=== PATIENT | male | born 1940 | race Caucasian/White ===

== ENCOUNTER 2017-10-12 07:34 | Inpatient (IN) | payer BC ==
[~2017-10-12] VITALS: Ht 160 cm; Wt 57.0 kg
[~2017-10-12 07:34] MED LIST: ASPIRIN 81M81 MG/TA2 PO; ATORVASTATIN; AZO-CRANBERRY450 MG PO; DARVOCET N; LIPITOR 10MG10 MG PO; MULTIPLE VITAMI1 CAP PO; NATURE'S BLEND400 IU PO; NITROSTAT0.4 MG/TAB SL; NORCO 325 MG-101 TAB PO; NORCO 325 MG-7.1 TAB PO; OMEGA-3 1000 MG1 CAP PO; OXYCONTIN40 MG PO; PRINZIDE 12.5 M1 TA1 PO; PROTONIX20 MG PO; ZEBETA 5MG5 MG PO; ZESTORETIC 12.51 TAB PO; ZYRTEC 10MG10 MG PO
[2017-10-12 08:31] LABS: COLLECTION METHOD CLEAN CATCH
[2017-10-12 08:34] LABS: MEAN CELL VOLUME 104 fl (80.0-100.0); MEAN CORPUSCULAR HGB CONC 33 g/dl (33.0-37.0); MEAN PLATELET VOLUME 9.3 fl (7.4-10.4); PLATELET COUNT 123 K/mm3 (130-400); RED BLOOD COUNT 3.31 M/mm3 (4.20-5.60); REDCELL DISTRIBUTION WIDTH-CV 11.9 % (11.5-14.5)
[2017-10-12 08:37] LABS: HEMATOCRIT 34.4 % (42.0-52.0); HEMOGLOBIN 11.5 g/dl (13.5-18.0); MEAN CORPUSCULAR HEMOGLOBIN 35 pg (27.0-31.0)
[2017-10-12 08:39] LABS: PH 8 (5-8); SQUAMOUS EPITHELIAL 0-2 /hpf; URINE APPEARANCE Hazy; URINE BACTERIA Rare /hpf; URINE BILIRUBIN Negative (NEGATIVE); URINE BLOOD Negative (NEGATIVE); URINE COLOR Yellow; URINE GLUCOSE Negative (NEGATIVE); URINE KETONE Negative (NEGATIVE); URINE LEUKOCYTE ESTERASE Negative (NEGATIVE); URINE NITRATE Negative (NEGATIVE); URINE PROTEIN(semi-quant) Negative (NEGATIVE); URINE RBC 0-2 /hpf
[2017-10-12 08:47] LABS: ALBUMIN 4.1 gm/dL (3.5-5.0); BILIRUBIN,TOTAL 0.9 mg/dL (0.0-1.0); CALCIUM 9.2 mg/dL (8.4-10.2); CREATININE, serum 0.77 mg/dL (0.66-1.25); POTASSIUM 3.4 mmol/L (3.4-5.0); TOTAL PROTEIN 7.2 gm/dL (6.4-8.2)
[2017-10-12] MEDS ORDERED: PROTONIX 40MG T40 MG PO (08:49)
[2017-10-12 08:52] LABS: INFLUENZA A NEGATIVE; INFLUENZA B NEGATIVE
[2017-10-12 09:00] LABS: TROPONIN-I 0.083 ng/mL (0.000-0.034)
[2017-10-12 09:27] LABS: BAND 68 % (0-10); EOSINOPHIL 1 % (0-4); LYMPHOCYTE 4 % (20.0-51.0); NEUTROPHILS 25 % (42.0-75.2); PLATELET ESTIMATE NORMAL (NORMAL)
[2017-10-12 11:22] VITALS: BP 130/64; PULSE 90; TEMP 99.1
[2017-10-12] MEDS ORDERED: NORCO 325 MG-101 TAB PO (12:52)
[2017-10-12 14:16] VITALS: BP 118/51; PULSE 96; TEMP 98.5
[2017-10-12 18:08] VITALS: BP 133/66; PULSE 75; TEMP 98.9
[2017-10-12 21:14] VITALS: BP 143/57; PULSE 89; TEMP 98.4
[2017-10-13 00:17] VITALS: BP 131/66; PULSE 72; TEMP 97.5
[2017-10-13 04:00] VITALS: BP 137/66; PULSE 80; TEMP 98.5
[2017-10-13 06:51] LABS: MEAN CELL VOLUME 107 fl (80.0-100.0); MEAN CORPUSCULAR HGB CONC 33 g/dl (33.0-37.0); MEAN PLATELET VOLUME 9.9 fl (7.4-10.4); PLATELET COUNT 114 K/mm3 (130-400); RED BLOOD COUNT 2.66 M/mm3 (4.20-5.60); REDCELL DISTRIBUTION WIDTH-CV 12.5 % (11.5-14.5)
[2017-10-13 06:53] LABS: HEMATOCRIT 28.5 % (42.0-52.0); HEMOGLOBIN 9.3 g/dl (13.5-18.0); MEAN CORPUSCULAR HEMOGLOBIN 35 pg (27.0-31.0)
[2017-10-13 07:10] LABS: CREATININE, serum 0.76 mg/dL (0.66-1.25); POTASSIUM 3.1 mmol/L (3.4-5.0)
[2017-10-13 07:33] LABS: BAND 22 % (0-10); EOSINOPHIL 1 % (0-4); LYMPHOCYTE 12 % (20.0-51.0); NEUTROPHILS 65 % (42.0-75.2); POLYCHROMASIA 1+
[2017-10-13 07:34] LABS: PLATELET ESTIMATE DECREASED (NORMAL)
[2017-10-13 08:32] LABS: FERRITIN 171 ng/mL (18-464)
[2017-10-13 08:45] LABS: IRON,SERUM 35 ug/dL (35-150); TOTAL IRON BINDING CAPACITY 242 ug/dL (261-462)
[2017-10-13 09:11] VITALS: BP 143/70; PULSE 64; TEMP 98.9
[2017-10-13] MEDS ORDERED: OMNICEF 300MG300 MG PO (12:32)
[2017-10-13] MEDS ORDERED: DOXYCYCLINE 10100 MG PO (12:35)
== END 2017-10-13 14:15 | disposition home or self-care (01) | DRG 193 ==
LOC: COL.ER 07:34 → SURG 09:49
PROVIDERS: Emergency Medicine; Family Medicine
DX: J18.9 Pneumonia, unspecified organism (principal); J96.01 Acute respiratory failure with hypoxia; I21.A1 Myocardial infarction type 2; G93.41 Metabolic encephalopathy; I10 Essential (primary) hypertension; E78.5 Hyperlipidemia, unspecified; K21.9 Gastro-esophageal reflux disease without esophagitis; D64.9 Anemia, unspecified; E87.6 Hypokalemia; Z85.46 Personal history of malignant neoplasm of prostate
CPT/HCPCS: 99222-AI; 99239; J0696; J2405; J7030; J7050

== ENCOUNTER 2017-11-05 08:48 | Inpatient (IN) | payer BC ==
[~2017-11-05] VITALS: Ht 152.4 cm; Wt 59.4 kg
[~2017-11-05 08:48] MED LIST changes: +DOXYCYCLINE 10100 MG PO; +OMNICEF 300MG300 MG PO; +PROTONIX 40MG T40 MG PO
[2017-11-05 09:34] LABS: HEMATOCRIT 35.8 % (42.0-52.0); HEMOGLOBIN 11.8 g/dl (13.5-18.0); MEAN CELL VOLUME 104 fl (80.0-100.0); MEAN CORPUSCULAR HEMOGLOBIN 34 pg (27.0-31.0); MEAN CORPUSCULAR HGB CONC 33 g/dl (33.0-37.0); MEAN PLATELET VOLUME 9.2 fl (7.4-10.4); PLATELET COUNT 180 K/mm3 (130-400); RED BLOOD COUNT 3.46 M/mm3 (4.20-5.60); REDCELL DISTRIBUTION WIDTH-CV 11.9 % (11.5-14.5)
[2017-11-05 09:52] LABS: ALBUMIN 4.1 gm/dL (3.5-5.0); BAND 22 % (0-10); BILIRUBIN,TOTAL 0.7 mg/dL (0.0-1.0); C-REACTIVE PROTEIN 1.5 mg/dL (0.0-0.9); CALCIUM 9.8 mg/dL (8.4-10.2); CREATININE, serum 0.85 mg/dL (0.66-1.25); LYMPHOCYTE 14 % (20.0-51.0); NEUTROPHILS 60 % (42.0-75.2); PLATELET ESTIMATE NORMAL (NORMAL); POTASSIUM 3.6 mmol/L (3.4-5.0); TOTAL PROTEIN 6.9 gm/dL (6.4-8.2)
[2017-11-05 10:25] LABS: TROPONIN-I < 0.012 ng/mL (0.000-0.034)
[2017-11-05 11:17] LABS: COLLECTION METHOD CLEAN CATCH
[2017-11-05 11:24] LABS: MUCOUS Present /lpf; PH 5 (5-8); SQUAMOUS EPITHELIAL 0-2 /hpf; URINE APPEARANCE Clear; URINE BACTERIA None Seen /hpf; URINE BILIRUBIN Negative (NEGATIVE); URINE BLOOD Negative (NEGATIVE); URINE COLOR Yellow; URINE GLUCOSE Negative (NEGATIVE); URINE KETONE Trace (NEGATIVE); URINE LEUKOCYTE ESTERASE Negative (NEGATIVE); URINE NITRATE Negative (NEGATIVE); URINE PROTEIN(semi-quant) Negative (NEGATIVE); URINE RBC None Seen /hpf; URINE UROBILINOGEN Negative (NEGATIVE)
[2017-11-05 13:23] LABS: GLUCOSE,CSF 59 mg/dL (40-70); TOTAL PROTEIN,CSF 66 mg/dL (15-45)
[2017-11-05 13:25] VITALS: BP 122/56; PULSE 66; TEMP 97.6
[2017-11-05 14:09] LABS: CSF APPEARANCE CLEAR; CSF COLOR COLORLESS; CSF MONONUCLEAR 75 % (70-100); CSF POLYMORPHONUCLEAR 25 % (0-6); CSF RBC 30 /mm3 (0-0)
[2017-11-05 14:10] LABS: CSF APPEARANCE CLEAR; CSF COLOR COLORLESS; CSF MONONUCLEAR 0 % (70-100); CSF POLYMORPHONUCLEAR 0 % (0-6); CSF RBC 10 /mm3 (0-0)
[2017-11-05 17:49] VITALS: BP 147/52; PULSE 53; TEMP 97.9
[2017-11-05 19:58] VITALS: BP 94/64; PULSE 57; TEMP 98.9
[2017-11-06 01:49] VITALS: BP 163/67; PULSE 82; TEMP 98.2
[2017-11-06 04:51] VITALS: BP 147/53; PULSE 57; TEMP 97.7
[2017-11-06 07:05] LABS: BASO # 0.1 (0.0-0.2); BASO % 0.6 % (0.0-2.0); EOS # 0.1 (0.0-0.7); EOS % 1.4 % (0-4.0); GRAN # 6.7 (1.4-6.5); GRAN % 77.9 % (42.2-75.2); LYMPH # 1.4 (1.2-3.4); MEAN CELL VOLUME 104 fl (80.0-100.0); MEAN CORPUSCULAR HGB CONC 33 g/dl (33.0-37.0); MEAN PLATELET VOLUME 9.7 fl (7.4-10.4); MONO # 0.3 (0.1-0.6); MONO % 3.6 % (1.7-9.3); PLATELET COUNT 177 K/mm3 (130-400); RED BLOOD COUNT 3.02 M/mm3 (4.20-5.60); REDCELL DISTRIBUTION WIDTH-CV 11.8 % (11.5-14.5)
[2017-11-06 07:06] LABS: HEMATOCRIT 31.4 % (42.0-52.0); HEMOGLOBIN 10.2 g/dl (13.5-18.0); MEAN CORPUSCULAR HEMOGLOBIN 34 pg (27.0-31.0)
[2017-11-06 07:17] LABS: CALCIUM 8.8 mg/dL (8.4-10.2); CREATININE, serum 0.76 mg/dL (0.66-1.25); POTASSIUM 3.2 mmol/L (3.4-5.0)
[2017-11-06 09:52] VITALS: BP 147/65; PULSE 63; TEMP 98.2
[2017-11-06 13:05] VITALS: BP 152/65; PULSE 59; TEMP 98.2
[2017-11-06 16:29] VITALS: BP 155/71; PULSE 64; TEMP 98.9
[2017-11-06 20:33] VITALS: BP 172/67; PULSE 65; TEMP 97.3
[2017-11-07] VITALS (7 sets, daily range): BP systolic 107–189; BP diastolic 46–83; PULSE 46–85; TEMP 97.6–98.7
[2017-11-07 06:53] LABS: BASO % 0.6 % (0.0-2.0); EOS # 0.2 (0.0-0.7); EOS % 3.9 % (0-4.0); GRAN # 3.3 (1.4-6.5); GRAN % 64.4 % (42.2-75.2); LYMPH # 1.3 (1.2-3.4); LYMPH % 24.5 % (20.0-51.0); MEAN CELL VOLUME 104 fl (80.0-100.0); MEAN CORPUSCULAR HGB CONC 33 g/dl (33.0-37.0); MEAN PLATELET VOLUME 9.7 fl (7.4-10.4); MONO # 0.3 (0.1-0.6); MONO % 6.2 % (1.7-9.3); PLATELET COUNT 135 K/mm3 (130-400); RED BLOOD COUNT 2.65 M/mm3 (4.20-5.60); REDCELL DISTRIBUTION WIDTH-CV 11.8 % (11.5-14.5)
[2017-11-07 06:56] LABS: HEMATOCRIT 27.5 % (42.0-52.0); HEMOGLOBIN 9.1 g/dl (13.5-18.0); MEAN CORPUSCULAR HEMOGLOBIN 34 pg (27.0-31.0)
[2017-11-07 07:03] LABS: INR 1.1 (0.8-3.0)
[2017-11-07 07:21] LABS: CALCIUM 8.4 mg/dL (8.4-10.2); CREATININE, serum 0.8 mg/dL (0.66-1.25); POTASSIUM 3.3 mmol/L (3.4-5.0)
[2017-11-08 00:50] VITALS: BP 140/50; PULSE 56; TEMP 98.7
[2017-11-08 06:40] LABS: BASO % 0.7 % (0.0-2.0); EOS # 0.2 (0.0-0.7); EOS % 3.7 % (0-4.0); GRAN % 67.1 % (42.2-75.2); LYMPH # 1.3 (1.2-3.4); LYMPH % 22.4 % (20.0-51.0); MEAN CELL VOLUME 102 fl (80.0-100.0); MEAN CORPUSCULAR HGB CONC 33 g/dl (33.0-37.0); MEAN PLATELET VOLUME 9.9 fl (7.4-10.4); MONO # 0.4 (0.1-0.6); MONO % 5.9 % (1.7-9.3); PLATELET COUNT 141 K/mm3 (130-400); RED BLOOD COUNT 2.64 M/mm3 (4.20-5.60); REDCELL DISTRIBUTION WIDTH-CV 11.5 % (11.5-14.5)
[2017-11-08 06:52] LABS: CALCIUM 8.5 mg/dL (8.4-10.2); CREATININE, serum 0.72 mg/dL (0.66-1.25); POTASSIUM 3.3 mmol/L (3.4-5.0)
[2017-11-08 06:55] LABS: HEMATOCRIT 26.8 % (42.0-52.0); HEMOGLOBIN 8.9 g/dl (13.5-18.0); MEAN CORPUSCULAR HEMOGLOBIN 34 pg (27.0-31.0)
[2017-11-08 09:22] VITALS: BP 170/83; PULSE 52; TEMP 98.3
== END 2017-11-08 11:58 | disposition home or self-care (01) | DRG 947 ==
LOC: COL.ER 08:48 → MEDICAL 11:54
PROVIDERS: Emergency Medicine; Family Medicine; Physician Assistant
PROC: 009U3ZX Drainage of Spinal Canal, Percutaneous Approach, Diagnostic (ICD-10-PCS; principal; 2017-11-05)
DX: R41.82 Altered mental status, unspecified (principal); I21.A1 Myocardial infarction type 2; R65.10 Systemic inflammatory response syndrome (SIRS) of non-infectious origin without acute organ dysfunction; R50.9 Fever, unspecified; I25.82 Chronic total occlusion of coronary artery; I08.3 Combined rheumatic disorders of mitral, aortic and tricuspid valves; E87.6 Hypokalemia; I25.10 Atherosclerotic heart disease of native coronary artery without angina pectoris; I10 Essential (primary) hypertension; Z85.46 Personal history of malignant neoplasm of prostate; D64.9 Anemia, unspecified; G89.29 Other chronic pain
CPT/HCPCS: 99222-AI; 99232-AI; 99239; J0696; J1650; J2250; J3010; J3370; J3420; J3480; J7030; J7050; J7060

== ENCOUNTER 2018-01-18 08:27 | Inpatient (IN) | payer BC ==
[~2018-01-18] VITALS: Ht 157.5 cm; Wt 181.9 kg
[2018-01-18] VITALS (740 sets, daily range): BP systolic 105–123; BP diastolic 55–63; PULSE 50–73; TEMP 97.8–99.4; O2SAT 40–100
[2018-01-18 08:48] LABS: BASO % 0.3 % (0.0-2.0); EOS # 0.3 (0.0-0.7); EOS % 2.8 % (0-4.0); GRAN # 9.9 (1.4-6.5); GRAN % 83.6 % (42.2-75.2); LYMPH % 8.3 % (20.0-51.0); MEAN CELL VOLUME 93 fl (80.0-100.0); MEAN CORPUSCULAR HGB CONC 34 g/dl (33.0-37.0); MEAN PLATELET VOLUME 9.3 fl (7.4-10.4); MONO # 0.6 (0.1-0.6); MONO % 4.7 % (1.7-9.3); PLATELET COUNT 183 K/mm3 (130-400); RED BLOOD COUNT 3.39 M/mm3 (4.20-5.60)
[2018-01-18 08:50] LABS: HEMATOCRIT 31.6 % (42.0-52.0); HEMOGLOBIN 10.7 g/dl (13.5-18.0); MEAN CORPUSCULAR HEMOGLOBIN 32 pg (27.0-31.0)
[2018-01-18 09:00] LABS: ALBUMIN 3.8 gm/dL (3.5-5.0); BILIRUBIN,TOTAL 0.6 mg/dL (0.0-1.0); C-REACTIVE PROTEIN 2.8 mg/dL (0.0-0.9); CALCIUM 9.3 mg/dL (8.4-10.2); CREATININE, serum 1.13 mg/dL (0.66-1.25); POTASSIUM 4.1 mmol/L (3.4-5.0); TOTAL PROTEIN 7.1 gm/dL (6.4-8.2)
[2018-01-18 09:02] LABS: COLLECTION METHOD CLEAN CATCH
[2018-01-18 09:16] LABS: PH 7 (5-8); SQUAMOUS EPITHELIAL 0-2 /hpf; URINE APPEARANCE Clear; URINE BACTERIA None Seen /hpf; URINE BILIRUBIN Negative (NEGATIVE); URINE BLOOD 2+ (NEGATIVE); URINE COLOR Yellow; URINE GLUCOSE Negative (NEGATIVE); URINE KETONE Negative (NEGATIVE); URINE LEUKOCYTE ESTERASE Negative (NEGATIVE); URINE NITRATE Negative (NEGATIVE); URINE PROTEIN(semi-quant) Negative (NEGATIVE); URINE RBC 20-50 /hpf; URINE UROBILINOGEN Negative (NEGATIVE)
[2018-01-19] VITALS (753 sets, daily range): BP systolic 98–174; BP diastolic 58–82; PULSE 54–77; TEMP 97.7–98.9; O2SAT 76–100
[2018-01-19 05:16] LABS: BASO % 0.5 % (0.0-2.0); EOS # 0.3 (0.0-0.7); GRAN # 4.9 (1.4-6.5); LYMPH # 1.1 (1.2-3.4); MEAN CELL VOLUME 95 fl (80.0-100.0); MEAN CORPUSCULAR HGB CONC 33 g/dl (33.0-37.0); MEAN PLATELET VOLUME 9.2 fl (7.4-10.4); MONO # 0.3 (0.1-0.6); MONO % 4.3 % (1.7-9.3); PLATELET COUNT 156 K/mm3 (130-400); RED BLOOD COUNT 2.84 M/mm3 (4.20-5.60); REDCELL DISTRIBUTION WIDTH-CV 11.9 % (11.5-14.5)
[2018-01-19 05:17] LABS: HEMATOCRIT 26.9 % (42.0-52.0); HEMOGLOBIN 8.9 g/dl (13.5-18.0); MEAN CORPUSCULAR HEMOGLOBIN 31 pg (27.0-31.0)
[2018-01-19 05:31] LABS: ALBUMIN 2.8 gm/dL (3.5-5.0); BILIRUBIN,TOTAL 0.6 mg/dL (0.0-1.0); CALCIUM 8.4 mg/dL (8.4-10.2); CREATININE, serum 0.87 mg/dL (0.66-1.25); POTASSIUM 3.7 mmol/L (3.4-5.0); TOTAL PROTEIN 5.6 gm/dL (6.4-8.2)
[2018-01-20 03:55] VITALS: BP 144/64; PULSE 53; TEMP 97.9
[2018-01-20 06:18] LABS: BASO % 0.6 % (0.0-2.0); EOS # 0.4 (0.0-0.7); EOS % 7.2 % (0-4.0); GRAN # 3.1 (1.4-6.5); GRAN % 59.9 % (42.2-75.2); LYMPH # 1.3 (1.2-3.4); LYMPH % 24.2 % (20.0-51.0); MEAN CELL VOLUME 94 fl (80.0-100.0); MEAN CORPUSCULAR HGB CONC 33 g/dl (33.0-37.0); MEAN PLATELET VOLUME 9.3 fl (7.4-10.4); MONO # 0.4 (0.1-0.6); MONO % 7.9 % (1.7-9.3); PLATELET COUNT 146 K/mm3 (130-400); RED BLOOD COUNT 2.66 M/mm3 (4.20-5.60); REDCELL DISTRIBUTION WIDTH-CV 12.1 % (11.5-14.5)
[2018-01-20 06:24] LABS: HEMATOCRIT 25.1 % (42.0-52.0); HEMOGLOBIN 8.3 g/dl (13.5-18.0); MEAN CORPUSCULAR HEMOGLOBIN 31 pg (27.0-31.0)
[2018-01-20 06:29] LABS: CALCIUM 8.3 mg/dL (8.4-10.2); CREATININE, serum 0.91 mg/dL (0.66-1.25); POTASSIUM 3.5 mmol/L (3.4-5.0)
[2018-01-20 08:37] VITALS: BP 145/56; PULSE 56; TEMP 98.4
[2018-01-20 12:34] VITALS: BP 139/57; PULSE 49; TEMP 97.9
[2018-01-20 16:49] VITALS: BP 152/71; PULSE 59; TEMP 98.8
[2018-01-20 20:20] VITALS: BP 188/67; PULSE 59; TEMP 97.7
[2018-01-20 23:58] VITALS: BP 131/71; PULSE 54; TEMP 98.5
[2018-01-21 04:37] VITALS: BP 133/66; PULSE 69; TEMP 97.8
[2018-01-21 07:56] VITALS: BP 170/70; PULSE 56; TEMP 98.6
[2018-01-21] MEDS ORDERED: AMOXICILLIN 8751 TAB PO (08:59)
== END 2018-01-21 10:45 | disposition home or self-care (01) | DRG 179 ==
LOC: COL.ER 08:27 → ICU 10:36 → MEDICAL 01-19 19:29
PROVIDERS: Emergency Medicine; Internal Medicine
DX: J69.0 Pneumonitis due to inhalation of food and vomit (principal); R31.29 Other microscopic hematuria; Z85.46 Personal history of malignant neoplasm of prostate; K21.9 Gastro-esophageal reflux disease without esophagitis; E78.5 Hyperlipidemia, unspecified; D53.9 Nutritional anemia, unspecified; I35.0 Nonrheumatic aortic (valve) stenosis
CPT/HCPCS: 99231-AI; 99232-AI; 99239; G0378; J1650; J2543; J7030

== ENCOUNTER 2018-06-02 03:43 | Inpatient (IN) | payer BC, MEDICARE ==
[2018-06-02] VITALS (566 sets, daily range): BP systolic 67–134; BP diastolic 46–68; PULSE 58–71; TEMP 97–97.9; O2SAT 63–100
[~2018-06-02] VITALS: Ht 157.5 cm; Wt 63.6 kg
[~2018-06-02 03:43] MED LIST changes: +AMOXICILLIN 8751 TAB PO
[2018-06-02 03:56] LABS: ARTERIAL BLD GAS TCO2 CT 23.5; ARTERIAL BLOOD GAS BASE EXCESS -0.7 (-2-2); ARTERIAL BLOOD GAS HCO3 22.5 meq/L (22-26); ARTERIAL BLOOD GAS PCO2 32.2 mmHg (35-45); ARTERIAL BLOOD GAS PO2 59.1 mmHg (80-100); ARTERIAL BLOOD GAS pH 7.46 (7.35-7.45)
[2018-06-02 04:28] LABS: BASO % 0.6 % (0.0-2.0); EOS # 0.4 (0.0-0.7); EOS % 5.6 % (0-4.0); GRAN % 74.7 % (42.2-75.2); LYMPH # 0.7 (1.2-3.4); LYMPH % 10.1 % (20.0-51.0); MEAN CELL VOLUME 92 fl (80.0-100.0); MEAN CORPUSCULAR HEMOGLOBIN 30 pg (27.0-31.0); MEAN CORPUSCULAR HGB CONC 33 g/dl (33.0-37.0); MEAN PLATELET VOLUME 9.4 fl (7.4-10.4); MONO # 0.6 (0.1-0.6); MONO % 8.1 % (1.7-9.3); PLATELET COUNT 112 K/mm3 (130-400); RED BLOOD COUNT 3.32 M/mm3 (4.20-5.60); REDCELL DISTRIBUTION WIDTH-CV 13.6 % (11.5-14.5)
[2018-06-02 04:34] LABS: ALANINE AMINOTRANSFERASE 24 U/L (21-72); ALBUMIN 3.6 gm/dL (3.5-5.0); ALKALINE PHOSPHATASE 115 U/L (50-136); ANION GAP 10 mmol/L (7-16); AST,SGOT 28 U/L (15-37); BILIRUBIN,TOTAL 0.4 mg/dL (0.0-1.0); BLOOD UREA NITROGEN 28 mg/dL (9-20); CALCIUM 8.8 mg/dL (8.4-10.2); CARBON DIOXIDE 25 mmol/L (22-30); CHLORIDE 102 mmol/L (98-107); CREATININE, serum 1.05 mg/dL (0.66-1.25); GLUCOSE 111 mg/dL (74-106); INR 1.1 (0.8-3.0); MAGNESIUM 1.5 mg/dL (1.6-2.3); PHOSPHOROUS 2.3 mg/dL (2.5-4.5); POTASSIUM 4.5 mmol/L (3.4-5.0); PROTHROMBIN TIME 12.1 SECONDS (9.7-12.8); SODIUM 137 mmol/L (137-145); TOTAL PROTEIN 6.7 gm/dL (6.4-8.2)
[2018-06-02 04:35] LABS: HEMATOCRIT 30.4 % (42.0-52.0)
[2018-06-02 04:37] LABS: PARTIAL THROMBOPLASTIN TIME 29.2 SECONDS (26.0-37.0)
[2018-06-02 04:47] LABS: COLLECTION METHOD CATHETER
[2018-06-02 04:48] LABS: TROPONIN-I < 0.012 ng/mL (0.000-0.034)
[2018-06-02 04:52] LABS: PH 5 (5-8); SQUAMOUS EPITHELIAL 0-2 /hpf; URINE APPEARANCE Clear; URINE BACTERIA None Seen /hpf; URINE BILIRUBIN Negative (NEGATIVE); URINE BLOOD Negative (NEGATIVE); URINE COLOR Yellow; URINE GLUCOSE Negative (NEGATIVE); URINE KETONE Negative (NEGATIVE); URINE LEUKOCYTE ESTERASE Negative (NEGATIVE); URINE NITRATE Negative (NEGATIVE); URINE PROTEIN(semi-quant) Negative (NEGATIVE); URINE RBC 0-2 /hpf; URINE UROBILINOGEN Negative (NEGATIVE)
[2018-06-02] MEDS ORDERED: DULCOLAX STOOL100 MG PO (05:09)
[2018-06-02] MEDS ORDERED: ASPIRIN 81M81 MG/TA2 PO (05:10)
[2018-06-03] VITALS (561 sets, daily range): BP systolic 105–165; BP diastolic 50–78; PULSE 56–80; TEMP 98.3–98.9; O2SAT 66–100
[2018-06-03 06:36] LABS: MEAN CELL VOLUME 95 fl (80.0-100.0); MEAN CORPUSCULAR HGB CONC 32 g/dl (33.0-37.0); MEAN PLATELET VOLUME 9.7 fl (7.4-10.4); PLATELET COUNT 158 K/mm3 (130-400); RED BLOOD COUNT 2.83 M/mm3 (4.20-5.60); REDCELL DISTRIBUTION WIDTH-CV 13.4 % (11.5-14.5)
[2018-06-03 06:41] LABS: HEMATOCRIT 26.9 % (42.0-52.0); HEMOGLOBIN 8.6 g/dl (13.5-18.0); MEAN CORPUSCULAR HEMOGLOBIN 30 pg (27.0-31.0)
[2018-06-03 06:48] LABS: ALBUMIN 2.9 gm/dL (3.5-5.0); BILIRUBIN,TOTAL 0.3 mg/dL (0.0-1.0); CALCIUM 8.1 mg/dL (8.4-10.2); CREATININE, serum 0.85 mg/dL (0.66-1.25); PHOSPHOROUS 3.2 mg/dL (2.5-4.5); POTASSIUM 3.6 mmol/L (3.4-5.0); TOTAL PROTEIN 5.5 gm/dL (6.4-8.2)
[2018-06-03 07:24] LABS: BAND 29 % (0-10); EOSINOPHIL 1 % (0-4); LYMPHOCYTE 13 % (20.0-51.0); NEUTROPHILS 54 % (42.0-75.2); PLATELET ESTIMATE NORMAL (NORMAL)
[2018-06-03] MEDS ORDERED: NORCO 325 MG-101 TAB PO (13:19)
[2018-06-04] VITALS (7 sets, daily range): BP systolic 116–171; BP diastolic 50–78; PULSE 56–80; TEMP 98–98.5
[2018-06-04 06:34] LABS: BASO % 0.5 % (0.0-2.0); EOS # 0.2 (0.0-0.7); EOS % 2.7 % (0-4.0); GRAN # 5.6 (1.4-6.5); GRAN % 74.5 % (42.2-75.2); LYMPH # 1.2 (1.2-3.4); LYMPH % 16.3 % (20.0-51.0); MEAN CELL VOLUME 94 fl (80.0-100.0); MEAN CORPUSCULAR HGB CONC 32 g/dl (33.0-37.0); MEAN PLATELET VOLUME 9.7 fl (7.4-10.4); MONO # 0.4 (0.1-0.6); MONO % 5.6 % (1.7-9.3); PLATELET COUNT 165 K/mm3 (130-400); RED BLOOD COUNT 2.67 M/mm3 (4.20-5.60); REDCELL DISTRIBUTION WIDTH-CV 13.5 % (11.5-14.5)
[2018-06-04 06:40] LABS: HEMATOCRIT 25.2 % (42.0-52.0); HEMOGLOBIN 8.1 g/dl (13.5-18.0); MEAN CORPUSCULAR HEMOGLOBIN 30 pg (27.0-31.0)
[2018-06-04 06:49] LABS: ALBUMIN 2.9 gm/dL (3.5-5.0); BILIRUBIN,TOTAL 0.4 mg/dL (0.0-1.0); CALCIUM 8.3 mg/dL (8.4-10.2); CREATININE, serum 0.87 mg/dL (0.66-1.25); POTASSIUM 3.5 mmol/L (3.4-5.0); TOTAL PROTEIN 5.5 gm/dL (6.4-8.2)
[2018-06-05 00:25] VITALS: BP 117/57; PULSE 72; TEMP 98.5
[2018-06-05 05:45] VITALS: BP 98/52; PULSE 85; TEMP 98.2
[2018-06-05 06:22] LABS: BASO % 0.5 % (0.0-2.0); EOS # 0.4 (0.0-0.7); EOS % 5.6 % (0-4.0); GRAN # 4.6 (1.4-6.5); GRAN % 69.2 % (42.2-75.2); LYMPH # 1.2 (1.2-3.4); LYMPH % 17.9 % (20.0-51.0); MEAN CELL VOLUME 93 fl (80.0-100.0); MEAN CORPUSCULAR HGB CONC 33 g/dl (33.0-37.0); MEAN PLATELET VOLUME 9.8 fl (7.4-10.4); MONO # 0.4 (0.1-0.6); MONO % 6.5 % (1.7-9.3); PLATELET COUNT 166 K/mm3 (130-400); RED BLOOD COUNT 2.72 M/mm3 (4.20-5.60); REDCELL DISTRIBUTION WIDTH-CV 13.5 % (11.5-14.5)
[2018-06-05 06:26] LABS: HEMATOCRIT 25.2 % (42.0-52.0); HEMOGLOBIN 8.2 g/dl (13.5-18.0); MEAN CORPUSCULAR HEMOGLOBIN 30 pg (27.0-31.0)
[2018-06-05 06:57] LABS: ALBUMIN 3.1 gm/dL (3.5-5.0); BILIRUBIN,TOTAL 0.6 mg/dL (0.0-1.0); CALCIUM 8.8 mg/dL (8.4-10.2); CREATININE, serum 0.81 mg/dL (0.66-1.25); POTASSIUM 3.1 mmol/L (3.4-5.0); TOTAL PROTEIN 5.8 gm/dL (6.4-8.2)
[2018-06-05 07:54] VITALS: BP 154/68; PULSE 57; TEMP 98.5
[2018-06-05] MEDS ORDERED: PRINZIDE 12.5 M1 TA1 PO (09:23)
[2018-06-05] MEDS ORDERED: K-DUR20 MEQ PO (09:23)
[2018-06-05] MEDS ORDERED: AMOXICILLIN 8751 TAB PO (09:26)
== END 2018-06-05 11:42 | disposition home or self-care (01) | DRG 871 ==
LOC: COL.ER 03:43 → ICU 05:27 → COL.ER 05:27 → MEDICAL 05:27 → SURG 05:27 → ICU 07:50 → MEDICAL 06-03 17:54 → ICU 06-03 17:54 → MEDICAL 06-03 18:00
PROVIDERS: Emergency Medicine; Physician Assistant
DX: A41.9 Sepsis, unspecified organism (principal); J96.01 Acute respiratory failure with hypoxia; J69.0 Pneumonitis due to inhalation of food and vomit; R65.20 Severe sepsis without septic shock; Z85.46 Personal history of malignant neoplasm of prostate; I10 Essential (primary) hypertension; E83.42 Hypomagnesemia; E78.5 Hyperlipidemia, unspecified; I25.10 Atherosclerotic heart disease of native coronary artery without angina pectoris; I35.0 Nonrheumatic aortic (valve) stenosis
CPT/HCPCS: 99223-AI; 99233-AI; 99239; J0360; J0456; J1650; J2543; J3475; J7030; J7050; Q9967

== ENCOUNTER 2020-04-15 00:12 | Inpatient (IN) | payer MEDICARE, OTHER ==
[~2020-04-15] VITALS: Ht 157.5 cm; Wt 64.2 kg
[~2020-04-15 00:12] MED LIST changes: +DULCOLAX STOOL100 MG PO; +K-DUR20 MEQ PO; +OXYCONTIN 20MG20 MG PO; -OXYCONTIN40 MG PO
[2020-04-15 01:19] LABS: BASO # 0.1 (0.0-0.2); BASO % 0.5 % (0.0-2.0); EOS # 0.1 (0.0-0.7); EOS % 0.7 % (0-4.0); GRAN # 11.7 (1.4-6.5); GRAN % 82.2 % (42.2-75.2); HEMATOCRIT 39.9 % (42.0-52.0); HEMOGLOBIN 13.1 g/dl (13.5-18.0); LYMPH # 1.9 (1.2-3.4); LYMPH % 13.2 % (20.0-51.0); MEAN CELL VOLUME 96 fl (80.0-100.0); MEAN CORPUSCULAR HEMOGLOBIN 31 pg (27.0-31.0); MEAN CORPUSCULAR HGB CONC 33 g/dl (33.0-37.0); MEAN PLATELET VOLUME 10.4 fl (7.4-10.4); MONO # 0.4 (0.1-0.6); PLATELET COUNT 213 K/mm3 (130-400); RED BLOOD COUNT 4.18 M/mm3 (4.20-5.60); REDCELL DISTRIBUTION WIDTH-CV 15.7 % (11.5-14.5)
[2020-04-15 01:24] LABS: PROTHROMBIN TIME 10.6 SECONDS (9.7-12.8)
[2020-04-15 02:36] LABS: ALBUMIN 3.8 gm/dL (3.5-5.0); BILIRUBIN,TOTAL 0.7 mg/dL (0.0-1.0); CALCIUM 8.6 mg/dL (8.4-10.2); CREATININE, serum 0.9 (0.66-1.25); POTASSIUM 3.9 mmol/L (3.4-5.0); TOTAL PROTEIN 6.5 gm/dL (6.4-8.2)
--- NOTE | 2020-04-15 04:15 | NUR ---
PT ADMITTED TO ROOM 342 VIA BED. INT NEEDLE TO RT F/A INFUSING IVF'S CHANGED TO NS 125CC/HR. PAIN TO EPIGASTRIC AREA LEVEL 9/10. SEE MAR FOR DILAUDID AND PHENERGAN GIVEN. PT VOIDED PER URINAL WEAR PAD FOR INCONTINENCE. BANDAIDS TO LEGS. PTS THOUGHT PROCESS ALITTLE DELAYED. ORIENTED TO ROOM. CALL LIGHT IN REACH. BED ALARAM SET.
[2020-04-15 04:25] VITALS: BP 155/87; PULSE 18; TEMP 97.9
--- NOTE | 2020-04-15 05:14 | NUR ---
PT RESTING NOW. NO RESP DISTRESS. NO EVIDENCE OF PAIN.
--- NOTE | 2020-04-15 05:32 | NUR ---
PT RELATES GETTING PAIN RELIEF NOW.
--- NOTE | 2020-04-15 06:27 | NUR ---
PT SLEEPING. NO RESP DISTRESS. NO EVIDENCE OF PAIN.
--- NOTE | 2020-04-15 06:55 | NUR ---
Lying in bed on left side with eyes closed. Opens eyes when name called out. Having some discomfort in abd but when asked to rate the pain the patient does not rate the pain. Patient denies needs at this time.
[2020-04-15 07:58] VITALS: BP 154/68; PULSE 63; TEMP 99.4
--- NOTE | 2020-04-15 09:08 | NUR ---
Patient repositioned in bed. Patient closes eyes. When asked if having pain he says some, does not rate the pain or explain where pain is, then patient recloses eyes. Asked if patient needs anything further. Patient does not give answer.
--- NOTE | 2020-04-15 10:22 | NUR ---
Lying in bed on right side with eyes closed. Respirations even and unlabored. No signs or symptoms of discomfort noted.
[2020-04-15] MEDS ORDERED: ARICEPT 5MG PO (10:56)
[2020-04-15] MEDS ORDERED: ZYLOPRIM 300MG300 MG PO (10:57)
[2020-04-15 11:21] LABS: MEAN CELL VOLUME 97 fl (80.0-100.0); MEAN CORPUSCULAR HGB CONC 33 g/dl (33.0-37.0); MEAN PLATELET VOLUME 9.8 fl (7.4-10.4); PLATELET COUNT 186 K/mm3 (130-400); RED BLOOD COUNT 3.32 M/mm3 (4.20-5.60); REDCELL DISTRIBUTION WIDTH-CV 15.8 % (11.5-14.5)
[2020-04-15 11:24] LABS: HEMATOCRIT 32.2 % (42.0-52.0); HEMOGLOBIN 10.7 g/dl (13.5-18.0); MEAN CORPUSCULAR HEMOGLOBIN 32 pg (27.0-31.0)
[2020-04-15 11:33] LABS: CALCIUM 8.7 mg/dL (8.4-10.2); CREATININE, serum 0.96 (0.66-1.25); POTASSIUM 3.7 mmol/L (3.4-5.0)
[2020-04-15 12:23] VITALS: BP 148/61; PULSE 68; TEMP 99.9
[2020-04-15 12:57] LABS: ANISOCYTOSIS 1+; BAND 3 % (0-10); LYMPHOCYTE 6 % (20.0-51.0); NEUTROPHILS 91 % (42.0-75.2); PLATELET ESTIMATE NORMAL (NORMAL)
--- NOTE | 2020-04-15 14:05 | NUR ---
Lying in bed on left side with eyes closed. Respirations even and unlabored. No signs or symptoms of discomfort noted at this time.
--- NOTE | 2020-04-15 15:06 | NUR ---
SW met with patient to complete intake. Patient was not able to complete intake due to being sleepy. SW met with nurse to see if patient was okay and nurse provided that patient has not really been answering questions thoroughly due to possibly being in pain. Nurse said patients concerns of being in pain are being addressed. SW called patient's Nicky [phone] to complete patient's intake. stated that spouse lives in [place], [place] at home with her and their son. Nicky provides that patient does not utilize any DME and is independent with ADL's. Nicky states that patient's PCP is Dr. George, patient obtains medications from [facility], and she states that he is able to afford his medications. Nicky provides that she is patient's DPOA-HC and that she has the documentation at her home. Nicky states that patient has not utiized any home health services in the past and does not know if patient will need those services up discharge. SVITLANA provided detailed information on services that patient can be assisted with if home health services are needed up on discharge. SVITLANA also informed Nicky about SW contact information should she have any questions in regards to discharge, or home health services. Nicky stated patient will be coming back to their home in [place] if able to, and she has not questions or concerns at this time. SVITLANA will continue to follow.
[2020-04-15 15:15] VITALS: BP 137/55; PULSE 63; TEMP 98.8
--- NOTE | 2020-04-15 17:29 | NUR ---
Patient lying in bed on right side. Asked patient if he needed to urinate and patient says no. Checked pad in underwear and pad wet. Pad changed at this time. Patient continues to shake head no when asked if he needs to urinate more. Patient denies any additional needs at this time. No signs or symptoms of discomfort noted.
--- NOTE | 2020-04-15 19:00 | NUR ---
PT VERY SEDATE. NO RESP DISTRESS. DENIES NEED FOR PAIN MED. IVF INUSING AT 125CC/HR. ALLOWED PT TO RETURN TO SLEEP. CALL LIGHT IN REACH. BED ALARM SET.
[2020-04-15 19:20] VITALS: BP 131/50; PULSE 64; TEMP 99
[2020-04-15 23:47] VITALS: BP 140/63; PULSE 49; TEMP 97.5
--- NOTE | 2020-04-16 00:41 | NUR ---
PT HAVING CHRONIC BACK PAIN. UNABLE TO DETERMINE LEVEL OF PAIN. BUT RESTLESS IN BED. PT SAYS HE WANTS TO GO HOME AND GET HIS PAIN PILLS AND WANTS TO CALL HIS . PT RELATES WE HAVE NOT DONE ANYTHING FOR HIME AND NEEDS TO GO HOME. SEE MAR FOR DILAUDID. PROVIDED PLAN OF CARE TO LET GI SYSTEM REST. NPO PROTONIX. PT CALM NOW. CALL LIGHT IN REACH. BED ALARM SET.
--- NOTE | 2020-04-16 02:38 | NUR ---
PT C/O BACK PAIN IS GETTING WORSE. WANTS TO KNOW IF HE HAS HIS PAIN PILLS HERE. REMINDED HIM OF PLAN OF CARE. NOTHING BY MOUTH. VERY FORGETFUL. SEE MAR FOR DILAUDID GIVEN. PT WANTS TO KNOW IF THIS WILL HELP HIM SLEEP. UNABLE TO USE PAIN SCALE 0-10. DENIES ABD OR EPIGASTRIC PAIN OR NAUSEA. CALL LIGHT IN REACH. BED ALARM SET.
[2020-04-16 03:14] VITALS: BP 165/53; PULSE 63; TEMP 98.6
--- NOTE | 2020-04-16 06:21 | NUR ---
PT SLEEPING INTERMITTENTLY SINCE DILAUDID FOR BACK PAIN. NO ABD OR EPIGASTRIC PAIN THIS SHIFT. UNEVENTFUL NIGHT.
[2020-04-16 06:29] LABS: BASO % 0.1 % (0.0-2.0); EOS % 0.1 % (0-4.0); GRAN # 6.9 (1.4-6.5); HEMOGLOBIN 10.1 g/dl (13.5-18.0); LYMPH % 12.1 % (20.0-51.0); MEAN CELL VOLUME 98 fl (80.0-100.0); MEAN CORPUSCULAR HEMOGLOBIN 32 pg (27.0-31.0); MEAN CORPUSCULAR HGB CONC 32 g/dl (33.0-37.0); MEAN PLATELET VOLUME 9.7 fl (7.4-10.4); MONO # 0.3 (0.1-0.6); MONO % 4.1 % (1.7-9.3); PLATELET COUNT 167 K/mm3 (130-400); RED BLOOD COUNT 3.17 M/mm3 (4.20-5.60); REDCELL DISTRIBUTION WIDTH-CV 16.2 % (11.5-14.5)
[2020-04-16 06:38] LABS: HEMATOCRIT 31.2 % (42.0-52.0)
[2020-04-16 06:43] LABS: CALCIUM 8.3 mg/dL (8.4-10.2); CREATININE, serum 0.98 (0.66-1.25); MAGNESIUM 1.9 mg/dL (1.6-2.3); PHOSPHOROUS 2.8 mg/dL (2.5-4.5); POTASSIUM 3.4 mmol/L (3.4-5.0)
--- NOTE | 2020-04-16 07:12 | NUR ---
Lying in bed on right side with eyes closed. Opens eyes when name called out. Patient says that he has chronic low back pain and this is the only area he is having pain at at this time. Patient denies any additional needs or concerns at this time.
[2020-04-16 07:16] VITALS: BP 152/41; PULSE 51; TEMP 98.5
--- NOTE | 2020-04-16 09:17 | NUR ---
Patient having back pain and would like pain medication. Administer Dilaudid as prescribed. Patient lying in bed on right side. Denies additional needs.
[2020-04-16 12:00] VITALS: BP 157/61; PULSE 60; TEMP 98.6
--- NOTE | 2020-04-16 12:24 | NUR ---
Lying in bed on right side. Opens eyes when in room. Patient provided with clear liquid lunch and water. Denies additional needs at this time.
--- NOTE | 2020-04-16 13:53 | NUR ---
Patient asks to have called to come pick him up. Explain to the patient why he is in the hospital, current plan of care, and that his is aware that he is in the hospital. Patient agrees to plan. Patient denies needs at this time.
[2020-04-16 16:34] VITALS: BP 153/65; PULSE 65; TEMP 98.4
--- NOTE | 2020-04-16 16:41 | NUR ---
Radiology notified that US was ordered for the patient. Antonio in radiology asks if it has to be done today, explain that the order was placed with todays date and that it is ordered as routine. Marti, ice house supervisor, tells radiology they do not have to do it today and it can wait until tomorrow.
--- NOTE | 2020-04-16 16:55 | NUR ---
Lying in bed on right side with eyes closed. Respirations even and unlabored. No signs or symptoms of discomfort noted at this time.
--- NOTE | 2020-04-16 17:43 | NUR ---
Assisted the patient in upright sitting position in bed to eat clear liquid dinner. Patient denies additional needs or concerns at this time.
--- NOTE | 2020-04-16 19:40 | NUR ---
PT ASKING FOR PAIN MED FOR BACK. SEE MAR FOR DILAUDID GIVEN. PT RELATES WANTS HIS PAIN MEDS INSTEAD. REVIEWED DR ORDERS WITH PT. O2 SAT 89%. PLACED O2 AT 1L NC. NOW UP TO 93%. DENIES ABD PAIN OR NAUSEA. IVF AT 75CC TO RT F/A. CALL LIGHT IN REACH. BED ALARM SET.
[2020-04-16 19:45] VITALS: BP 149/59; PULSE 65; TEMP 98.9
[2020-04-17] VITALS: BP 144/61; PULSE 71; TEMP 98.2
--- NOTE | 2020-04-17 03:42 | NUR ---
PT C/O BACK PAIN. LEVEL 6/10. DENIES ABD PAIN THROUGHOUT THIS SHIFT. SEE MAR FOR DILAUDID GIVEN.
[2020-04-17 04:30] VITALS: BP 158/59; PULSE 69; TEMP 98.9
[2020-04-17 06:46] LABS: BASO % 0.4 % (0.0-2.0); EOS # 0.1 (0.0-0.7); EOS % 0.7 % (0-4.0); LYMPH # 1.1 (1.2-3.4); LYMPH % 11.5 % (20.0-51.0); MEAN CELL VOLUME 98 fl (80.0-100.0); MEAN CORPUSCULAR HGB CONC 33 g/dl (33.0-37.0); MEAN PLATELET VOLUME 10.2 fl (7.4-10.4); MONO # 0.6 (0.1-0.6); MONO % 5.7 % (1.7-9.3); PLATELET COUNT 151 K/mm3 (130-400); RED BLOOD COUNT 2.99 M/mm3 (4.20-5.60); REDCELL DISTRIBUTION WIDTH-CV 15.8 % (11.5-14.5)
[2020-04-17 06:56] LABS: HEMATOCRIT 29.2 % (42.0-52.0); HEMOGLOBIN 9.7 g/dl (13.5-18.0); MEAN CORPUSCULAR HEMOGLOBIN 32 pg (27.0-31.0)
[2020-04-17 07:02] LABS: CALCIUM 8.2 mg/dL (8.4-10.2); CHOLESTEROL RISK RATIO 2.9; CREATININE, serum 0.88 (0.66-1.25); POTASSIUM 3.3 mmol/L (3.4-5.0)
[2020-04-17 07:13] VITALS: BP 170/68; PULSE 64; TEMP 98.7
--- NOTE | 2020-04-17 10:00 | NUR ---
IV TO INT PER DR. BOCANEGRA
[2020-04-17 11:44] VITALS: BP 139/62; PULSE 67; TEMP 98.5
--- NOTE | 2020-04-17 12:31 | NUR ---
First visit from the bullet assembly press operator. No needs right now.
--- NOTE | 2020-04-17 14:06 | NUR ---
DR. PELAEZ CALLED AND NOTIFIED THAT THE PATIENT IS TOLERATING A BLAND DIET WITHOUT ANY DIFFICULTIES. DR WILL BE BY SHORTLY.
[2020-04-17] MEDS ORDERED: NORVASC 5MG5 MG/TAB PO (14:33)
[2020-04-17] MEDS ORDERED: BLUE-EMU LIDOC1 EACH TP (14:33)
[2020-04-17 15:30] VITALS: BP 145/51; PULSE 63; TEMP 98
--- NOTE | 2020-04-17 16:15 | NUR ---
PATIENTS RIGHT FOREARM INT DISCONTINUED PER PENDING DISCHARGE. TIP INTACT. PATIENT TOLERATED WELL. DISCHARGE INSTRUCTIONS REVIEWED WITH PATIENT. QUESTIONS SOUGHT AND ANSWERED. PATIENT PERSONAL BELONGINGS GATHERED. PATIENT TAKEN TO PERSONAL VEHICLE VIA WHEELCHAIR BY SURGICAL STAFF. PATIENT DISCHARGED.
== END 2020-04-17 16:15 | disposition home or self-care (01) | DRG 439 ==
LOC: COL.ER 00:12 → SURG 02:55
PROVIDERS: Emergency Medicine; ADMIT Hospitalist
DX: K85.20 Alcohol induced acute pancreatitis without necrosis or infection (principal); M48.54XA Collapsed vertebra, not elsewhere classified, thoracic region, initial encounter for fracture; F03.90 Unspecified dementia, unspecified severity, without behavioral disturbance, psychotic disturbance, mood disturbance, and anxiety; I10 Essential (primary) hypertension; R00.1 Bradycardia, unspecified; E78.5 Hyperlipidemia, unspecified; G89.29 Other chronic pain; K21.9 Gastro-esophageal reflux disease without esophagitis; M10.9 Gout, unspecified; Z88.2 Allergy status to sulfonamides
CPT/HCPCS: 99222-AI; 99232-AI; C9113; J1170; J1650; J2405; J2550; J3010; J7030; Q9967

== ENCOUNTER 2020-08-28 18:38 | Emergency (ER) | payer OTHER, MEDICARE ==
[~2020-08-28] VITALS: Ht 157.5 cm; Wt 56.8 kg
[~2020-08-28 18:38] MED LIST changes: +ARICEPT 5MG PO; +BLUE-EMU LIDOC1 EACH TP; +NORVASC 5MG5 MG/TAB PO; +ZYLOPRIM 300MG300 MG PO
[2020-08-28 18:48] VITALS: TEMP 97.7
[2020-08-28 23:55] VITALS: BP 134/64; PULSE 89
== END 2020-08-28 23:55 | disposition home or self-care (01) ==
LOC: COL.ER 18:38
DX: S41.112A Laceration without foreign body of left upper arm, initial encounter (principal); S80.212A Abrasion, left knee, initial encounter; S80.211A Abrasion, right knee, initial encounter; S00.83XA Contusion of other part of head, initial encounter; Z88.2 Allergy status to sulfonamides; Z79.82 Long term (current) use of aspirin; V49.9XXA Car occupant (driver) (passenger) injured in unspecified traffic accident, initial encounter

== ENCOUNTER 2021-04-10 07:29 | Outpatient (CLI) | payer MEDICARE, OTHER ==
[~2021-04-10] VITALS: Ht 157.6 cm; Wt 58.3 kg
--- NOTE | 2021-04-10 07:50 | NUR ---
Patient arrived for MIRNA, he is in express room 14, alert/oriented, vital signs stable, 20G IV started to right forearm and labs drawn, notified RT for EKG, home meds/allergies/pharmacy and history reveiwed with patient, Radiology notified of his arrival, present at bedside
[2021-04-10 08:07] LABS: HEMOGLOBIN 10.2 g/dl (13.5-18.0); MEAN CELL VOLUME 92 fl (80.0-100.0); MEAN CORPUSCULAR HEMOGLOBIN 30 pg (27.0-31.0); MEAN CORPUSCULAR HGB CONC 32 g/dl (33.0-37.0); MEAN PLATELET VOLUME 11.1 fl (7.4-10.4); PLATELET COUNT 154 K/mm3 (130-400); RED BLOOD COUNT 3.43 M/mm3 (4.20-5.60)
[2021-04-10 08:10] LABS: HEMATOCRIT 31.7 % (42.0-52.0)
[2021-04-10 08:12] LABS: INR 1.1 (0.8-3.0); PROTHROMBIN TIME 12.1 SECONDS (9.7-12.8)
[2021-04-10 08:14] VITALS: BP 152/70; PULSE 46; TEMP 98
[2021-04-10 08:15] LABS: CALCIUM 9.4 mg/dL (8.4-10.2); CREATININE, serum 1.01 (0.66-1.25); POTASSIUM 3.5 mmol/L (3.4-5.0)
[2021-04-10] MEDS ORDERED: NORCO 325 MG-101 TAB PO (08:25)
[2021-04-10] MEDS ORDERED: VITAMINC1000TA PO (08:26)
[2021-04-10] MEDS ORDERED: ZEBETA 5MG5 MG PO ×2 (08:26→10:29)
[2021-04-10] MEDS ORDERED: B-121000 MCG PO (08:26)
[2021-04-10] MEDS ORDERED: NATURAL E400 IU PO (08:27)
[2021-04-10] MEDS ORDERED: TURMERIC500 MG PO (08:28)
[2021-04-10] MEDS ORDERED: MULTI-VITAMIN W1 TA2 PO (08:28)
[2021-04-10 09:53] VITALS: BP 152/86; PULSE 53; TEMP 98
--- NOTE | 2021-04-10 10:08 | NUR ---
Patient doing well post MIRNA, alert/oriented, vital signs stable, denies pain, tolerating PO fluids intake, in room, denies needs, will continue to monitor
[2021-04-10 10:23] VITALS: BP 142/75; PULSE 51
[2021-04-10] MEDS ORDERED: NATURAL IRON65 MG PO (10:30)
[2021-04-10 10:38] VITALS: BP 143/75; PULSE 55
[2021-04-10 11:08] VITALS: BP 154/83; PULSE 57
[2021-04-10 11:28] VITALS: BP 167/71; PULSE 57
--- NOTE | 2021-04-10 11:28 | NUR ---
Patient continues to do well post MIRNA, alert/oriented, vital signs stable, he is eating and dinking and tolerating well without any N/V, he is ambulating and denies feeling lightheaded or dizzy, denies pain or discomfort, has spoke to patient and his and gave discharge orders, I have discussed discharge orders, discussed new meds and med changes/ scripts sent to [facility] for him, I have removed his monitors and his right arm IV site, his is driving him home and I escorted them out the door
== END 2021-04-10 11:35 | disposition home or self-care (01) ==
LOC: COL.RAD 07:29
PROVIDERS: Internal Medicine Cardiovascular Disease
DX: I35.0 Nonrheumatic aortic (valve) stenosis (principal)